=== PATIENT | female | born 1995 | race Caucasian/White ===

== ENCOUNTER 2018-02-03 18:43 | Emergency (ER) | payer BC ==
[~2018-02-03] VITALS: Ht 162.6 cm; Wt 72.6 kg
[2018-02-03 18:54] VITALS: BP 124/19
--- NOTE | 2018-02-03 19:00 | NUR ---
PT DECIDED TO GO TO AN URGENT CARE INSTEAD BECAUSE SHE DOES NOT WANT TO PAY MORE. REFUSED TO BE SEEN BY A DOCTOR NOW PT LEFT IN STABLE CONDITION
== END 2018-02-03 19:02 | disposition left against medical advice (07) ==
LOC: ER 18:56
DX: M79.652 Pain in left thigh (principal); Z53.21 Procedure and treatment not carried out due to patient leaving prior to being seen by health care provider
CPT/HCPCS: A4606; Z7610

== ENCOUNTER 2018-04-19 19:49 | Emergency (ER) | payer BC ==
[~2018-04-19] VITALS: Ht 162.6 cm; Wt 59.0 kg
[2018-04-19 19:49] VITALS: BP 126/97
[2018-04-19] MEDS ORDERED: MAG HYDROX/AL HYDROX/SIMETH 30 ML UDC PO ONE (21:00)
[2018-04-19] MEDS ORDERED: LIDOCAINE VISCOUS 2% UD 15 ML UDC MM ONE (21:00)
[2018-04-19] MEDS ORDERED: FAMOTIDINE (20 MG) 20 MG TABLET PO ONE (21:00)
[2018-04-19] MEDS ORDERED: ONDANSETRON 4 MG TAB.RAPDIS SL ONE (21:00)
[2018-04-19] MEDS ORDERED: MAG HYDROX/AL HYDROX/SIMETH 30 ML UDC ONE (21:10)
[2018-04-19] MEDS ORDERED: FAMOTIDINE (20 MG) 20 MG TABLET ONE (21:10)
[2018-04-19] MEDS ORDERED: ONDANSETRON 4 MG TAB.RAPDIS ONE (21:10)
[2018-04-19] MEDS ORDERED: LIDOCAINE VISCOUS 2% UD 15 ML UDC ONE (21:10)
[2018-04-19 22:06] LABS: APPEARANCE,URINE CLEAR (CLEAR); BILIRUBIN,URINE NEGATIVE (NEGATIVE); BLOOD, URINE NEGATIVE Ery/uL (NEGATIVE); COLOR,URINE YELLOW (YELLOW); KETONES,URINE NEGATIVE (NEGATIVE); LEUKOCYTE ESTERASE ,URINE NEGATIVE (NEGATIVE); NITRITE, URINE NEGATIVE (NEGATIVE); PROTEIN,URINE NEGATIVE (NEGATIVE); UGLUCOSE NEGATIVE (NEGATIVE); UROBILINOGEN,URINE 0.2 EU/dL (0.2)
[2018-04-19] MEDS ORDERED: SUCRALFATE 1 G/10 ML UDC PO STA (22:06)
[2018-04-19] MEDS ORDERED: SUCRALFATE 1 G/10 ML UDC ONE (22:18)
== END 2018-04-19 22:57 | disposition home or self-care (01) ==
LOC: ER 19:51
DX: K21.9 Gastro-esophageal reflux disease without esophagitis (principal); N39.0 Urinary tract infection, site not specified; Z88.0 Allergy status to penicillin
CPT/HCPCS: 81001; 84703; 87086; 87491; 87591; 99284; A4606; Q0162; Z7610; 81000-TC